=== PATIENT | male | born 1960 | race Caucasian/White ===

== ENCOUNTER 2016-08-23 12:07 | Emergency (ER) | payer OTHER ==
[~2016-08-23] VITALS: Ht 177.8 cm; Wt 126.0 kg
[~2016-08-23 12:07] MED LIST: ACETAMINOPHN-T1 EACH; ADULT LOW STREN81 M2 PO; ASPIR-LOW81 M1 PO; BABY ASPIRIN81 MG PO; COREG12.5 M1 PO; CYCLOBENZAPRINE10 MG PO; DIAZEPAM5 MG PO; Ecotrin PO; GLUCOPHAGE1000 MG PO; HYDROCHLOROTHIA25 MG PO; HYDRODIURIL,O12.5 M2 PO; IBUPROFEN800 MG; INDOCIN50 MG PO; LISINOPRIL-HCTZ 20-2; LISINOPRIL40 MG PO; LOPRESSOR25 MG PO; METFORMIN; METFORMIN HCL1000 M1; MOTRIN800 MG PO; NAPROSYN500 MG PO; NOHOMEMEDS; PRAVASTATIN SOD80 MG PO; PREDNISONE50 MG PO; ULTRAM50 MG PO
[2016-08-23 13:43] VITALS: BP 125/47
== END 2016-08-23 13:51 | disposition home or self-care (01) ==
LOC: EXP 12:07 → EME 12:07 → EXP 13:51
DX: S81.801D Unspecified open wound, right lower leg, subsequent encounter (principal); S81.802D Unspecified open wound, left lower leg, subsequent encounter; X58.XXXD Exposure to other specified factors, subsequent encounter; Z48.00 Encounter for change or removal of nonsurgical wound dressing; R60.0 Localized edema; Z87.891 Personal history of nicotine dependence
CPT/HCPCS: 99281; 99283

== ENCOUNTER 2016-11-04 16:50 | Emergency (ER) | payer OTHER ==
[~2016-11-04] VITALS: Ht 177.8 cm; Wt 125.4 kg
[2016-11-04] MEDS ORDERED: LASIX40 MG PO (18:36)
[2016-11-04 19:01] LABS: POINT-OF-CARE METER ID UU13113702
[2016-11-04 19:33] VITALS: BP 145/62
== END 2016-11-04 19:37 | disposition home or self-care (01) ==
LOC: EME 16:50
PROVIDERS: Physician Assistant Medical
DX: E11.622 Type 2 diabetes mellitus with other skin ulcer (principal); L97.929 Non-pressure chronic ulcer of unspecified part of left lower leg with unspecified severity; I10 Essential (primary) hypertension; I25.2 Old myocardial infarction; Z79.84 Long term (current) use of oral hypoglycemic drugs; Z72.0 Tobacco use
CPT/HCPCS: 82948; 99281; 99284

== ENCOUNTER 2016-12-09 12:13 | Emergency (ER) | payer OTHER ==
[~2016-12-09] VITALS: Ht 177.8 cm; Wt 125.2 kg
[~2016-12-09 12:13] MED LIST changes: +LASIX40 MG PO
[2016-12-09] MEDS ORDERED: FLEXERIL10 MG PO (15:18)
[2016-12-09 15:24] VITALS: BP 123/59
== END 2016-12-09 15:26 | disposition home or self-care (01) ==
LOC: EME 12:13
DX: M54.5 Low back pain (principal); M25.552 Pain in left hip
CPT/HCPCS: 73502; 99281; 99283

== ENCOUNTER 2017-04-10 15:01 | Emergency (ER) | payer OTHER ==
[~2017-04-10] VITALS: Ht 177.8 cm; Wt 105.7 kg
[~2017-04-10 15:01] MED LIST changes: +FLEXERIL10 MG PO
[2017-04-10 15:16] VITALS: BP 146/76
[2017-04-10] MEDS ORDERED: MOTRIN800 MG PO (15:26)
== END 2017-04-10 15:44 | disposition home or self-care (01) ==
LOC: EME 15:01
DX: S76.011A Strain of muscle, fascia and tendon of right hip, initial encounter (principal); S39.012A Strain of muscle, fascia and tendon of lower back, initial encounter; I10 Essential (primary) hypertension; E78.5 Hyperlipidemia, unspecified; E11.9 Type 2 diabetes mellitus without complications; Z79.84 Long term (current) use of oral hypoglycemic drugs
CPT/HCPCS: 99281; 99283

== ENCOUNTER 2017-12-05 23:09 | Emergency (ER) | payer OTHER ==
[~2017-12-05] VITALS: Ht 177.8 cm; Wt 136.7 kg
[2017-12-06 02:07] VITALS: BP 188/91
== END 2017-12-06 02:11 | disposition home or self-care (01) ==
LOC: EME 23:09
DX: K08.89 Other specified disorders of teeth and supporting structures (principal); K06.8 Other specified disorders of gingiva and edentulous alveolar ridge; M19.90 Unspecified osteoarthritis, unspecified site
CPT/HCPCS: 99281; 99283

== ENCOUNTER 2018-01-03 21:23 | Emergency (ER) | payer OTHER ==
[~2018-01-03] VITALS: Ht 175.3 cm; Wt 133.4 kg
[2018-01-03] MEDS ORDERED: VALIUM5 MG PO (22:14)
[2018-01-03] MEDS ORDERED: PREDNISONE20 MG PO (22:14)
[2018-01-03] MEDS ORDERED: NORCO 5/3251 TABLET PO (22:14)
[2018-01-03] MEDS ORDERED: LIDODERM 5% P1 PATCH TD (22:14)
[2018-01-03] MEDS ORDERED: FLEXERIL10 MG PO (22:23)
[2018-01-03 22:27] VITALS: BP 179/92
== END 2018-01-03 22:29 | disposition home or self-care (01) ==
LOC: EME 21:23 → EXP 21:23
DX: M54.5 Low back pain (principal); G89.29 Other chronic pain; M51.37 Other intervertebral disc degeneration, lumbosacral region; N28.9 Disorder of kidney and ureter, unspecified; I10 Essential (primary) hypertension; E11.9 Type 2 diabetes mellitus without complications; Z79.84 Long term (current) use of oral hypoglycemic drugs; I25.2 Old myocardial infarction
CPT/HCPCS: 99281; 99283